=== PATIENT | female | born 1990 | race Caucasian/White ===

== ENCOUNTER 2017-07-19 14:21 | Emergency (ER) | payer SELFPAY ==
[~2017-07-19] VITALS: Ht 172.7 cm; Wt 82.1 kg
[~2017-07-19 14:21] MED LIST: OSLT75CRX PO
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
--- OUTSIDE RECORDS SUMMARY | 2017-07-19 14:26 | XMS REPORT ---
Author Author CHAD MENDOZA Organization [employer] Address Unknown Phone Unavailable Care Team Providers Care Middle School Tutor Name Role Phone CHAD MENDOZA CP Unavailable Allergies, Adverse Reactions, Alerts Substance Reaction Event Type Tramadol HCl stomach upset Drug Allergy Problems Problem Type Condition Code Onset Dates Condition Status Problem Right knee pain M25.561 Active Assessment Right knee pain M25.561 Active Problem Patsy rash of groin B37.89 Active Medications Medication Code System Code Instructions Start Date End Date Status Dosage Ketoconazole [facility] [address]-29 200 MG Orally Once a day Jul 30, 2015 Aug 02, 2015 1 tablet Ketoconazole [facility] [address]-18 2 % Externally Twice a day Jul 30, 2015 Aug 09, 2015 1 application to affected area Procedures Procedure Coding System Code Date Office Visit, Est Pt., Level 4 CPT-4 31215 Jul 31, 2015 X-RAY EXAM OF KNEE, 3 CPT-4 74295 Jul 31, 2015 Vital Signs Date/Time: Jul 31, 2015 Temperature 98.4 F Weight 160.8 lbs Height 69 in BMI 23.74 Index Blood Pressure Diastolic 78 mmHg Blood Pressure Systolic 116 mmHg Cardiac Monitoring Heart Rate 84 bpm Results No Known Results Summary Purpose [employer] Submission
--- OUTSIDE RECORDS SUMMARY | 2017-07-19 14:26 | XMS REPORT ---
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
--- OUTSIDE RECORDS SUMMARY | 2017-07-19 14:26 | XMS REPORT ---
Author Author ODETTE SINGLETON Organization [employer] Address Unknown Phone Unavailable Care Team Providers Care Eligibility Worker Name Role Phone ODETTE SINGLETON CP Unavailable Allergies, Adverse Reactions, Alerts Substance Reaction Event Type Tramadol HCl stomach upset Drug Allergy Problems Problem Type Condition Code Onset Dates Condition Status Problem Right knee pain M25.561 Active Assessment Patsy rash of groin B37.89 Active Problem Patsy rash of groin B37.89 Active Assessment Right knee pain M25.561 Active Medications Medication Code System Code Instructions Start Date End Date Status Dosage Ketoconazole [facility] [address]-07 2 % Externally Twice a day Jul 30, 2015 Aug 09, 2015 1 application to affected area Ibuprofen NDC 0 not defined Ketoconazole [facility] [address]-35 200 MG Orally Once a day Jul 30, 2015 Aug 02, 2015 1 tablet Tylenol 8 Hour [facility] [address]-40 not defined Procedures Procedure Coding System Code Date Office Visit, Est Pt., Level 3 CPT-4 38731 Jul 30, 2015 Vital Signs Date/Time: Jul 30, 2015 Temperature 98.8 F Weight 160.0 lbs Height 69 in BMI 23.63 Index Blood Pressure Diastolic 78 mmHg Blood Pressure Systolic 122 mmHg Cardiac Monitoring Heart Rate 86 bpm Results No Known Results Summary Purpose [employer] Submission
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
--- NOTE | 2017-07-19 15:40 | Diagnostic Imaging Report ---
PA and lateral views of the chest Indication: Cough Findings: The lungs are clear. The heart size is normal. There is no effusion or pneumothorax The mediastinum and jarvis appear unremarkable. Minimal right convexity curvature of the lower thoracic spine is seen. Impression: No acute process. Dictated by: Dictated on workstation # [id number]
[2017-07-19] MEDS ORDERED: RT-ALBUINH IH (16:05)
[2017-07-19 16:30] VITALS: BP 128/77
== END 2017-07-19 16:30 ==
LOC: EDUNIT# 14:21 → ER 14:24
DX: J20.9 Acute bronchitis, unspecified (principal)
CPT/HCPCS: 71020; 84703; 99282

== ENCOUNTER 2018-07-12 15:42 | Emergency (ER) | payer MEDICAID ==
[~2018-07-12] VITALS: Ht 175.3 cm; Wt 83.9 kg
[~2018-07-12 15:42] MED LIST changes: +RT-ALBUINH IH
--- OUTSIDE RECORDS SUMMARY | 2018-07-12 16:08 | XMS REPORT | Continuity of Care Document ---
Author Author [facility] Organization [facility] Address Unknown Phone Unavailable Care Team Providers Care Batch Freezer Operator Name Role Phone [facility] OF PCP Insurance Providers Payer Name Policy Number Subscriber Name Relationship [facility] [id number] Amy Martin Self / Same As Patient Advance Directives Directive Response Recorded Date/Time Advance Directives No 09/17/14 9:36pm Resuscitation Status Full Code 09/17/14 9:36pm Problems Medical Problems Problem Onset Date Status Influenza A Unknown Active Influenza A Unknown Active Medications Medication Dose Route Sig Days/Qty Instructions Order Date Discontinued Date Status Oseltamivir Phosphate (Tamiflu) 75 Mg PO TWICE A DAY 9 Qty 09/17/14 Active Social History Social History Problem Response Recorded Date/Time Alcohol Use Occasionally Uses 09/17/2014 9:36pm Recreational Drug Use No 09/17/2014 9:36pm Recent Foreign Travel No 09/17/2014 9:33pm Smoking Status Never a Smoker 09/17/2014 9:36pm Query Response Start Date Stop Date Smoking Status Never a Smoker Hospital Discharge Instructions No hospital discharge instructions. Plan of Care No plan of care. Functional Status No functional status results. Allergies, Adverse Reactions, Alerts Allergen Type Severity Reaction Status Last Updated No Known Drug Allergies Allergy Unknown Active 09/08/09 Immunizations Name Given Type Tetanus Booster (TDap) Unknown Historical Vital Signs Acute Vital Signs Vital Response Date/Time Temperature (Fahrenheit) 103.2 degrees F (97.6 - 99.5) Temperature (Calculated Celsius) 39.13714 degrees C (36.4 - 37.5) Temperature Source Temporal Pulse Rate (adult) 118 bpm (60 - 90) Respiratory Rate 18 bpm (12 - 24) O2 Sat by Pulse Oximetry 97 % (88 - 100) Blood Pressure 129/63 mm Hg Pain Pain Intensity 8 Height (Feet) 5 feet Height (Inches) 9 inches Height (Calculated Centimeters) 175.402627 cm Weight (Pounds) 127 pounds Weight (Calculated Kilograms) 57.485140 kilograms Calculated BMI 18.75 Results No known relevant diagnostic tests, laboratory data and/or discharge summary. Procedures No known history of procedures. Encounters Encounter Location Date/Time Departed Emergency Room [facility] 09/17/14 9:13pm Recent Diagnosis
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
--- OUTSIDE RECORDS SUMMARY | 2018-07-12 16:08 | XMS REPORT ---
Author Author RONALD BO Organization [facility] Address [address] [place] [address] Care Team Providers [employer] Glazer Name Role Phone RONALD BO Unavailable PROBLEMS Type Condition ICD9-CM Code CDY91-QI Code Onset Dates Condition Status SNOMED Code Problem Right knee pain M25.561 Active 58980145 Problem Patsy rash of groin B37.89 Active 56251511 ALLERGIES Substance Reaction Event Type Date Status Tramadol HCl stomach upset Drug Allergy Jun, Active ENCOUNTERS Encounter Location Date Diagnosis [facility] [address] [id number] Sep, Dental examination Z01.20 [facility] [id number] [place] [phone] Jun, Cough R05 [facility] [id number] [place] [phone] Aug, Sadia-Schlatter/osteochondroses M92.8 [facility] [id number] [place] [address] Jul, Right knee pain M25.561 [facility] [id number] [place] [phone] Jul, Patsy rash of groin B37.89 and Right knee pain M25.561 [facility] [id number] [place] [id number] Sep, [facility] [address] [phone] Sep, [facility] [id number] [place] [id number] Mar, [facility] [address], [place] [address] Mar, [facility] [address] [facility] [id number] [place] [id number] Nov, [facility] [address] [facility] [id number][place] [address] Nov, [facility] [address] [facility] [id number] [place] [id number] Aug, [facility] [address] [facility] [id number], [place] [address] Aug, [facility] [address] [facility] [id number] [place] [id number] Jun, [facility] [id number] [address] Jun, [facility] [address] [id number] [place] [phone] May, [facility] [address] [facility] [id number] [id number] 16 Apr, 2013 [facility] [address] [facility] [id number] [place] [id number] 14 Apr, 2013 [facility] [address] [address] Apr, [facility] [address] [id number] [address] 12 Apr, 2013 [facility] [address], [place] [address] 09 Apr, 2013 [facility] [address] [facility] [id number][place] [id number] Apr, [facility] [address] [facility] [id number], [place] [address] Jul, [facility] [address] [facility] [id number], [place] [address] Jul, [facility] [address] [address] Jun, [facility] [address] [facility] [id number] [place] [address] May, IMMUNIZATIONS No Known Immunizations SOCIAL HISTORY Never Assessed REASON FOR VISIT cough x 1.5 months and wont go away. Chest began to hurt, sharp pains, yesterday on Right side. States it is still hurting. PLAN OF CARE Activity Details Follow Up prn Reason: VITAL SIGNS Height 69 in 2017-07-19 Weight 181.6 lbs 2017-07-19 Temperature 98.3 degrees Fahrenheit 2017-07-19 Heart Rate 72 bpm 2017-07-19 Respiratory Rate 20 2017-07-19 BMI 26.81 kg/m2 2017-07-19 Blood pressure systolic 108 mmHg 2017-07-19 Blood pressure diastolic 58 mmHg 2017-07-19 MEDICATIONS Medication Instructions Dosage Frequency Start Date End Date Duration Status Benzonatate 200 mg Orally Three times a day 1 capsule 8h Jun, Jul, 10 days Active Ibuprofen Not-Taking Tylenol 8 Hour Not-Taking RESULTS No Results PROCEDURES No Known procedures INSTRUCTIONS MEDICATIONS ADMINISTERED No Known Medications
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
--- NOTE | 2018-07-12 16:59 | Diagnostic Imaging Report ---
INDICATION: Cough. COMPARISON: 07/19/2017. FINDINGS: Frontal and lateral views of the chest demonstrate normal heart size and pulmonary vascularity. The lungs are clear. There are no signs of infiltrate, pleural effusions or pneumothoraces. The visualized osseous structures show no acute abnormalities. IMPRESSION: 1. No acute process. No signs of infiltrates, effusions or pneumothoraces. Dictated by: Dictated on workstation # [id number]
[2018-07-12] MEDS ORDERED: AMOX-358 PO (17:12)
[2018-07-12 17:42] VITALS: BP 119/70
== END 2018-07-12 17:42 | disposition home or self-care (01) ==
LOC: EDUNIT# 15:42 → ER 15:43
DX: J06.9 Acute upper respiratory infection, unspecified (principal); K04.7 Periapical abscess without sinus; Z79.51 Long term (current) use of inhaled steroids; Z88.6 Allergy status to analgesic agent
CPT/HCPCS: 71046

== ENCOUNTER 2019-04-28 16:41 | Emergency (ER) | payer MEDICAID ==
[~2019-04-28] VITALS: Ht 175.3 cm; Wt 83.9 kg
[~2019-04-28 16:41] MED LIST changes: +AMOX-358 PO
[2019-04-28] MEDS ORDERED: AMOXICILLIN 500 MG (POLYMOX) CAP PO STA (17:29)
[2019-04-28] MEDS ORDERED: AMOX500C2 PO (17:35)
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
[2019-04-28 18:05] VITALS: BP 100/85
== END 2019-04-28 18:04 | disposition home or self-care (01) ==
LOC: EDUNIT# 16:41 → ER 16:42
DX: K02.9 Dental caries, unspecified (principal); Z88.5 Allergy status to narcotic agent
CPT/HCPCS: 99283

== ENCOUNTER 2019-06-14 16:36 | Emergency (ER) | payer MEDICAID ==
[~2019-06-14] VITALS: Ht 167 cm; Wt 84.2 kg
[~2019-06-14 16:36] MED LIST changes: +AMOX500C2 PO
--- NOTE | 2019-06-14 17:00 | NUR ---
PT DENIES CONTRACTIONS OR FEELINGS OF TIGHTNESS IN ABD.
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
[2019-06-14 17:35] LABS: BILIRUBIN,URINE NEGATIVE (NEGATIVE); CLARITY,URINE SLIGHTLY CLOUDY; COLOR,URINE YELLOW; GLUCOSE, URINE (UA) NEGATIVE (NEGATIVE); KETONES,URINE NEGATIVE (NEGATIVE); LEUKOCYTE ESTERASE ,URINE 3+ (NEGATIVE); NITRITE,URINE NEGATIVE (NEGATIVE); PH,URINE 6.5 (5-9); PROTEIN,URINE NEGATIVE (NEGATIVE)
[2019-06-14 17:43] LABS: BACTERIA,URINE TRACE /HPF; WBC,URINE >100 /HPF
[2019-06-14] MEDS ORDERED: LIDOCAINE 1% INJ 20 ML 20 ML VIAL INJ ONE (17:45)
[2019-06-14] MEDS ORDERED: cefTRIAXone 1,000 MG/2.86 ml vial (IM ONLY) IM SCH (17:45)
[2019-06-14] MEDS ORDERED: CEPH-507 PO (17:46)
[2019-06-14 18:11] VITALS: BP 106/63
== END 2019-06-14 18:10 | disposition home or self-care (01) ==
LOC: EDUNIT# 16:36 → ER 16:39
DX: S01.01XA Laceration without foreign body of scalp, initial encounter (principal); R40.2142 Coma scale, eyes open, spontaneous, at arrival to emergency department; R40.2252 Coma scale, best verbal response, oriented, at arrival to emergency department; R40.2362 Coma scale, best motor response, obeys commands, at arrival to emergency department; Z88.5 Allergy status to narcotic agent; V47.5XXA Car driver injured in collision with fixed or stationary object in traffic accident, initial encounter; Y92.413 State road as the place of occurrence of the external cause
CPT/HCPCS: 81000; 87088; 96372

== ENCOUNTER → 2019-09-21 | Outpatient (CLI) | payer MEDICAID ==
[~2019-09-21] MED LIST changes: +CEPH-507 PO
== END ==
LOC: LABNPT 09:07
PROVIDERS: ATTEND Obstetrics & Gynecology
DX: O28.8 Other abnormal findings on antenatal screening of mother (principal)
CPT/HCPCS: 82570; 84156

== ENCOUNTER → 2019-09-28 | Outpatient (CLI) | payer MEDICAID ==
[~2019-09-28] MED LIST changes: +DOCU-143 PO; +IBUP-1780 PO; +OXYC1TAB87 PO; +PNV11TAB5 PO
== END ==
LOC: LABNPT 09:01
PROVIDERS: ATTEND Obstetrics & Gynecology
DX: O14.03 Mild to moderate pre-eclampsia, third trimester (principal); Z3A.00 Weeks of gestation of pregnancy not specified
CPT/HCPCS: 82570; 84156

== ENCOUNTER → 2019-10-01 | Outpatient (CLI) | payer MEDICAID ==
[~2019-10-01] MED LIST changes: -DOCU-143 PO; -IBUP-1780 PO; -OXYC1TAB87 PO; -PNV11TAB5 PO
== END ==
LOC: LABNPT 10:05
PROVIDERS: ATTEND Obstetrics & Gynecology
DX: O14.03 Mild to moderate pre-eclampsia, third trimester (principal)
CPT/HCPCS: 82570; 84156

== ENCOUNTER → 2019-10-05 | Outpatient (CLI) | payer MEDICAID ==
[~2019-10-05] MED LIST changes: +DOCU-143 PO; +IBUP-1780 PO; +OXYC1TAB87 PO; +PNV11TAB5 PO
== END ==
LOC: LABNPT 08:47
PROVIDERS: ATTEND Obstetrics & Gynecology
DX: Z01.89 Encounter for other specified special examinations (principal)
CPT/HCPCS: 82570; 84156

== ENCOUNTER 2019-10-06 10:39 | Inpatient (IN) | payer MEDICAID ==
[~2019-10-06] VITALS: Ht 175.3 cm; Wt 87.6 kg
[2019-10-06] VITALS (32 sets, daily range): BP systolic 91–142; BP diastolic 51–71
[~2019-10-06 10:39] MED LIST changes: -DOCU-143 PO; -IBUP-1780 PO; -OXYC1TAB87 PO; -PNV11TAB5 PO
--- NOTE | 2019-10-06 10:46 | NUR ---
ORION URIBE presented to unit from ED, accompanied by Signficant Other, with c/o LABOR. ORION URIBE weighed, gowned, voided, and to bed. EFHM and TOCO applied, VS taken. ORION URIBE oriented to bed controls, call light, TV, heat, and A/C controls.
[2019-10-06 11:18] LABS: BILIRUBIN,URINE NEGATIVE (NEGATIVE); CLARITY,URINE CLEAR; COLOR,URINE YELLOW; GLUCOSE, URINE (UA) NEGATIVE (NEGATIVE); KETONES,URINE NEGATIVE (NEGATIVE); LEUKOCYTE ESTERASE ,URINE 1+ (NEGATIVE); NITRITE,URINE NEGATIVE (NEGATIVE); PROTEIN,URINE NEGATIVE (NEGATIVE)
[2019-10-06 11:38] LABS: BACTERIA,URINE NEGATIVE /HPF; WBC,URINE RARE /HPF
[2019-10-06 11:39] LABS: TRICHOMONAS,URINE FEW /HPF
[2019-10-06] MEDS ORDERED: D5 LR IV SOLUTION 1,000 ML IV ONE ×2 (12:13→12:15)
[2019-10-06] MEDS ORDERED: metroNIDAZOLE 500 MG (FLAGYL) TAB PO NR (12:15)
[2019-10-06] MEDS: D5 LR IV SOLUTION 1,000 ML IV SCH ×2 (14:30→23:26)
[2019-10-06] MEDS ORDERED: WATER (STERILE) FOR INJECTION 20 ML ONE (15:07)
[2019-10-06] MEDS ORDERED: AMPICILLIN FOR IV USE 2,000 MG VIAL ONE (15:08)
[2019-10-06] MEDS ORDERED: OXYTOCIN PRE-MIX DRIP 500 ML IV SCH (15:11)
--- NOTE | 2019-10-06 15:11 | History & Physical ---
History and Physical Date Seen by Provider: Oct 06, 2019 Time Seen by Provider: 15:07 This patient is a 29-year-old white female with an EDC of 37 2039 for now 37 weeks gestation she was admitted complaining of contractions pain and pressure and discharge. She was found be cristin with some regularity. Her cervix is dilated 2 cm. Nitrazine was negative. The patient was found to have trichomoniasis. Her is complicated by oligohydramnios. Her last GABRIELLA was yesterday was 58. Her GBS culture done on September 21, 2019 was positive. Patient is admitted now for labor management. She'll be treated for her trichomoniasis and well. She will receive ampicillin for GBS prophylaxis. Allergies are to tramadol Medications are vitamins Social and surgical histories are per the antepartum record HEENT exam is normal Neck is supple no lymphadenopathy no thyromegaly Abdomen is gravid soft nontender nondistended Extremities show no clubbing cyanosis. There is no Homans sign. Pelvic exam shows cervix that is dilated TO 2.5 CM 50 percent effaced -1 to -2 station -soft. With a vertex presentation and intact membranes. Amniotomy is performed releasing slightly port wine fluid monitor shows contractions about every 4-6 minutes. heart rate pattern is normal. Laboratory Tests Test 10/06/19 10:55 Range/Units Urine Color YELLOW Urine Clarity CLEAR Urine pH 8.0 5-9 Urine Specific [place] 1.015 L 1.016-1.022 Urine Protein NEGATIVE NEGATIVE Urine Glucose (UA) NEGATIVE NEGATIVE Urine Ketones NEGATIVE NEGATIVE Urine Nitrite NEGATIVE NEGATIVE Urine Bilirubin NEGATIVE NEGATIVE Urine Urobilinogen 0.2 < = 1.0 MG/DL Urine Leukocyte Esterase 1+ H NEGATIVE Urine RBC (Auto) NEGATIVE NEGATIVE Urine RBC NONE /HPF Urine WBC RARE /HPF Urine Squamous Epithelial Cells 2-5 /HPF Urine Crystals NONE /LPF Urine Bacteria NEGATIVE /HPF Urine Casts NONE /LPF Urine Mucus NEGATIVE /LPF Urine Trichomonas FEW H /HPF Urine Culture Indicated NO Assessment and plan term at 37 weeks' gestation, dated by oligohydramnios with a GBS positive culture and likely in early labor. Patient is admitted now be given ampicillin for GBS prophylaxis. She'll be given 2 g dose of metronidazole to cover for her trichomoniasis. We anticipate a vaginal delivery. 37 weeks and early labor with oligohydramnios Allergies and Home Medications Allergies Coded Allergies: tramadol (Verified Adverse Reaction, Mild, NAUSEA, 07/21/17) Home Medications Albuterol Sulfate 1 Puff Puff, 1-4 PUFF IH Q4H PRN for SHORTNESS OF BREATH 1 PUFF = 90 MCG Prescribed by: BUDDY LÓPEZ on 07/19/17 1605 Amoxicillin 500 Mg Capsule, 500 MG PO TID Prescribed by: SANTOS BUSTOS on 04/28/19 1735 Amoxicillin/Potassium Clav 1 Each Tablet, 1 EACH PO BID Prescribed by: JAIDEN STACK on 07/12/18 1712 Cephalexin 500 Mg Capsule, 500 MG PO TID Prescribed by: SANTOS BUSTOS on 06/14/19 1746 Oseltamivir Phosphate 75 Mg Cap, 75 MG PO BID Prescribed by: SANTOS BUSTOS on 09/17/14 2211 Patient Home Medication List Home Medication List Reviewed: Yes TRAY CALIXTO MD Oct 06, 2019 15:11
[2019-10-06] MEDS ORDERED: DOCU-143 PO ×2 (15:17)
[2019-10-06] MEDS ORDERED: OXYC1TAB87 PO ×2 (15:17)
[2019-10-06] MEDS ORDERED: IBUP-1780 PO ×2 (15:17)
--- NOTE | 2019-10-06 15:18 | Discharge Inst-Surgical ---
Discharge Inst-Surgical Depart Medication/Instructions New, Converted or Re-Newed RX: RX on Chart Consults/Follow Up Patient Instructions: as directed Orders & Referrals Follow Up Appt: Call to make follow up appt. for patient in 4 weeks. Activity Per routine post vaginal delivery instructions. Please call in RX to patient pharmacy. Diet as tolerated Patient may shower or tub bathe as desired. Activity Activity as Tolerated: No Diet Discharge Diet: No Restrictions TRAY CALIXTO MD Oct 06, 2019 15:17
[2019-10-06 16:05] LABS: BASOPHILS % (AUTO) 0 % (0-10); EOSINOPHILS # (AUTO) 0.2 10^3/uL (0.0-0.3); EOSINOPHILS % (AUTO) 2 % (0-10); HEMATOCRIT 29 % (35-52); HEMOGLOBIN 9.4 G/DL (11.5-16.0); LYMPHOCYTES # (AUTO) 2.1 X 10^3 (1.0-4.0); LYMPHOCYTES % (AUTO) 17 % (12-44); MEAN CORPUSCULAR HEMOGLOBIN 29 PG (25-34); MEAN CORPUSCULAR HGB CONC 32 G/DL (32-36); MEAN CORPUSCULAR VOLUME 90 FL (80-99); MONOCYTES % (AUTO) 8 % (0-12); NEUTROPHILS # (AUTO) 9.1 X 10^3 (1.8-7.8); NEUTROPHILS % (AUTO) 73 % (42-75); PLATELET COUNT 152 10^3/uL (130-400); RED CELL DISTRIBUTION WIDTH 14.6 % (10.0-14.5); WHITE BLOOD COUNT 12.4 10^3/uL (4.3-11.0)
[2019-10-06] MEDS ORDERED: LACTATED RINGERS 1,000 ML IV ONE (16:38)
[2019-10-06] MEDS ORDERED: SUFENTA 0.6MCG/ML BUPIVA 0.125 100 ML ONE (16:49)
[2019-10-06] MEDS ORDERED: fentaNYL INJECTION 100 MCG/2 ML AMP ONE (17:26)
[2019-10-06] MEDS ORDERED: BUPIVACAINE 0.25% 30 ML (SENSORCAINE) VIAL ONE ×2 (17:26→18:34)
--- NOTE | 2019-10-06 17:30 | NUR ---
Rafa Heller BRICK SIDING APPLICATOR here for epidural placement. Procedure explained, consent reviewed and signed by anesthesia. Questions answered to patient's satisfaction. Time out taken to verify correct patient/procedure. Patient up to side of bed, assisted into sitting position. Betadine prep done x3 and sterile drape applied. Local done, see anesthesia record. Test dose given, see anesthesia record for drug and dosage. Epidural catheter secured in place. Epidural placement complete. Assisted back into bed, monitors adjusted. Epidural dosed, see anesthesia record. Epidural of Sufenta/Bupivicaine @ 12 cc/hr stated per pump. Patient tolerated procedure well.
--- NOTE | 2019-10-06 18:20 | NUR ---
Rafa Heller HOD CARRIER back to room to replace epidural. Time out taken to verify correct patient/procedure. Patient up to side of bed, assisted into sitting position. Betadine prep done x3 and sterile drape applied. Local done, see anesthesia record. Test dose given, see anesthesia record for drug and dosage. Epidural catheter secured in place. Epidural placement complete. Assisted back into bed, monitors adjusted. Epidural dosed, see anesthesia record. Epidural of Sufenta/Bupivicaine @ 12 cc/hr stated per pump. Bolus of Lidocaine and Marcaine per anesthesia.
[2019-10-06] MEDS ORDERED: LIDOCAINE PF 2% 5 ML (XYLOCAINE) VIAL ONE (18:34)
[2019-10-06] MEDS ORDERED: LACTATED RINGERS 1,000 ML IV SCH (18:46)
[2019-10-06] MEDS ORDERED: NALOXONE 0.4 MG/ML 1 ML (NARCAN) VIAL IV PRN ×2 (19:00)
[2019-10-06] MEDS ORDERED: diphenhydrAMINE 50 MG/ML INJ (BENADRYL) IV PRN (19:00)
[2019-10-06] MEDS ORDERED: EPIDURAL (SUFENTA 0.6MCG/ML BUPIVA 0.125%) 100 ML BAG EPI PRN (19:00)
[2019-10-06] MEDS ORDERED: METOCLOPRAMIDE INJ 10 MG/2 ML (REGLAN) IV PRN (19:00)
[2019-10-06] MEDS ORDERED: ONDANSETRON 4 MG/2 ML (SDV) Z0FRAN IV PRN (19:00)
[2019-10-06] MEDS ORDERED: AMPICILLIN FOR IV USE 1,000 MG/VIAL ONE (19:20)
[2019-10-06] MEDS ORDERED: WATER (STERILE) FOR INJECTION 10 ML ONE (19:21)
[2019-10-06] MEDS: AMPICILLIN FOR IV USE 1,000 MG in WATER (STERILE) FOR INJECTION 7.4 ML IV SCH ×2 (19:32→22:56)
[2019-10-06] MEDS ORDERED: PNV11TAB5 PO ×2 (19:36)
[2019-10-06] MEDS ORDERED: CATHETER FLUSH 10 ML SYR IV SCH (22:00)
[2019-10-07] VITALS (17 sets, daily range): BP systolic 100–152; BP diastolic 53–75
[2019-10-07] MEDS ORDERED: LIDOCAINE/EPI 2% 1:200,00 (XYLOCAINE) 10 ML VIAL ONE (00:11)
[2019-10-07] MEDS ORDERED: OXYTOCIN PRE-MIX DRIP 500 ML IV SCH (01:57)
[2019-10-07] MEDS ORDERED: BENZOCAINE/MENTHOL (DERMOPLAST) 60 ML CAN TP PRN (02:00)
[2019-10-07] MEDS ORDERED: KETOROLAC 30 MG/ML VIAL IVP SCH (02:00)
[2019-10-07] MEDS ORDERED: MEASLES,MUMPS,RUBELLA 1 EA INJ SC ONE (02:00)
[2019-10-07] MEDS ORDERED: TETANUS,DIPTH,PERTUSS P/F (BOOSTRIX) 0.5 ML VIAL IM ONE (02:00)
[2019-10-07] MEDS ORDERED: ONDANSETRON 4 MG/2 ML (SDV) Z0FRAN IVP PRN (02:00)
[2019-10-07] MEDS ORDERED: oxyCODONE/APAP 5/325MG (PERCOCET 5) TABLET PO PRN (02:00)
--- NOTE | 2019-10-07 03:30 | NUR ---
epidural cath removed. pericare completed. ff 1 below umbilicus. pad and panties applied. pt assisted to w'c and taken down to 310. pt orientated to room. info papers discussed. pt denies any needs at this time. will continue to monitor.
--- NOTE | 2019-10-07 03:45 | NUR ---
Ice pack applied to perineum
--- NOTE | 2019-10-07 06:42 | Anesthesia-Regional Post-Op ---
Regional Patient Condition Mental Status: Alert, Oriented x3 Circulation: Same as Pre-Op Headache: Absent Sensation: Full Recovery Motor Block: Absent Post Op Complications Complications None Follow Up Care/Instructions Patient Instructions None needed. Anesthesia/Patient Condition Patient is doing well, no complaints, stable vital signs, no apparent adverse anesthesia problems. No complications reported per nursing. AARTI BECKFORD CRNA Oct 07, 2019 06:42
--- NOTE | 2019-10-07 07:21 | NUR ---
IV saline locked.
--- NOTE | 2019-10-07 08:55 | NUR ---
AM shift assessment completed and vital signs obtained, see interventions. Plan of care reviewed with patient. Patient verbalizes understanding and questions answered. Fresh water provided.
[2019-10-07] MEDS: DOCUSATE SODIUM 100 MG (COLACE) CAP PO SCH ×2 (08:57→20:32)
[2019-10-07] MEDS: IBUPROFEN 800 MG (MOTRIN) TAB PO SCH ×3 (08:58→20:32)
--- NOTE | 2019-10-07 10:15 | OPERATIVE REPORT ---
DATE OF SERVICE: 10/07/2019 DELIVERY NOTE The patient delivered by term spontaneous vaginal delivery at 37 and 1/7 weeks' gestation a viable male with Apgars of 8 and 9 at 1 and 5 minutes respectively, weight of 6 pounds and 9 ounces. time of 1:15 and a cord blood pH of 7.32. The delivery was accomplished over an intact perineum under epidural analgesia, augmented with local in the perineum. The infant was bulb suctioned on delivery of the head and again on completion of delivery. When the umbilical cord was pulseless, the father cut the cord and the baby was passed to mom's abdomen. The placenta delivered fairly promptly, spontaneously [place]. It was normal with a 3-vessel cord. The cervix, vagina, rectum and perineum were examined and found intact, except for bilateral first-degree vaginal side wall/hymenal ring lacerations that were each repaired with a suture of 3-0 Vicryl Rapide in a running locking fashion. Good hemostasis and good reapproximation was achieved. The patient tolerated the delivery and the repair well. Estimated blood loss was 200 mL. Sponge and needle counts were correct. The patient recovered in the LDR. The baby remained with the mom. Job ID: [id number] DocumentID: [id number] Dictated Date: 10/07/2019 01:36:11 Supervisor Doping Date: 10/07/2019 10:14:45 Dictated By: TRAY CALIXTO MD
--- NOTE | 2019-10-07 13:42 | NUR ---
saline lock removed. pt reports pain level at 3 and does not require pain medication. linens to room for shower. family at bedside
--- NOTE | 2019-10-07 14:30 | NUR ---
pt to shower. no changes in status. ambulating without issues
[2019-10-07] MEDS ORDERED: AMPICILLIN FOR IV USE 2,000 MG in WATER (STERILE) FOR INJECTION 14.8 ML IV SCH (15:15)
--- NOTE | 2019-10-07 16:00 | NUR ---
pt up in hallway. denies need for pain medication. no changes in status
--- NOTE | 2019-10-07 20:36 | Progress Note ---
Standard Progress Note Progress Notes/Assess & Plan Date Seen by a Provider: Oct 07, 2019 Time Seen by a Provider: 20:36 Progress/Assessment & Plan This patient is without complaint. She is ambulating, voiding, tolerating all intake well has good pain control. Vital Signs 10/07/19 20:00 Temp 36.8 Pulse 78 Resp 18 B/P (MAP) 116/70 (85) Pulse Ox 97 O2 Delivery Room Air Vital signs are stable. Patient is afebrile. Fundus is firm below the umbilicus and nontender. Extremities show no clubbing or cyanosis. There is no Homans sign. Assessment and plan day 1 doing well. Plan is for routine convalescence care. Final Diagnosis 37 week spontaneous vaginal delivery TRAY CALIXTO MD Oct 07, 2019 20:36
[2019-10-08] VITALS: BP 125/69
[2019-10-08] MEDS: IBUPROFEN 800 MG (MOTRIN) TAB PO SCH (03:22)
[2019-10-08 04:00] VITALS: BP 107/62
--- NOTE | 2019-10-08 07:47 | Progress Note ---
Standard Progress Note Progress Notes/Assess & Plan Date Seen by a Provider: Oct 08, 2019 Time Seen by a Provider: 07:46 Progress/Assessment & Plan This patient is without complaint. She is ambulating, voiding, tolerating all intake well has good pain control. Vital Signs 10/07/19 20:00 Temp 36.8 Pulse 78 Resp 18 B/P (MAP) 116/70 (85) Pulse Ox 97 O2 Delivery Room Air Vital signs are stable. Patient is afebrile. Fundus is firm below the umbilicus and nontender. Extremities show no clubbing or cyanosis. There is no Homans sign. Assessment and plan day 1 doing well. Plan is for routine convalescence care. October 08, 2019 Patient is without complaint. She is ambulating, voiding, tolerating oral intake well has good pain control. Vital Signs Date Time Temp Pulse Resp B/P (MAP) Pulse Ox O2 Delivery O2 Flow Rate FiO2 10/08/19 04:00 36.7 78 18 107/62 (77) 97 Room Air 10/08/19 00:00 36.9 79 16 125/69 (87) 98 Room Air 10/07/19 21:00 97 Room Air 10/07/19 20:00 36.8 78 18 116/70 (85) 97 Room Air 10/07/19 14:30 37.1 78 20 109/53 (71) 10/07/19 08:55 36.9 76 18 127/65 (85) 97 Room Air I & O 10/08/19 07:00 Intake Total 500 ml Balance 500 ml Vital signs are stable. Patient is afebrile. Fundus is firm below the umbilicus and nontender. Extremities show no clubbing or cyanosis. There is no Homans sign. Assessment and plan day 1+ doing well. Plan is for routine convalescence care today and likely discharge home tomorrow Final Diagnosis 37 week spontaneous vaginal delivery TRAY CALIXTO MD Oct 08, 2019 07:47
[2019-10-08] MEDS: DOCUSATE SODIUM 100 MG (COLACE) CAP PO SCH ×2 (08:43→09:20)
[2019-10-08 08:44] VITALS: BP 112/61
--- NOTE | 2019-10-08 14:10 | NUR ---
Discharge instructions explained to pt with copy provided to pt along with percocet script. Other prescriptions called to [facility]. Pt notified of follow up appointment. Pt verbalizes understanding of instruction and signs to verify. Denies needs or concerns at this time.
--- NOTE | 2019-10-08 14:50 | NUR ---
Pt ambulates off unit to private vehicle accompanied by S.O., , son, and RN. All personal belongings with pt. No s/s of distress noted.
== END 2019-10-08 14:50 | disposition home or self-care (01) | DRG 806 ==
LOC: WSo 10:39 → LDRP 10:39 → WSo 14:59 → LDRP 15:00
PROVIDERS: ADMIT Obstetrics & Gynecology; ATTEND Obstetrics & Gynecology
PROC: 10E0XZZ Delivery of Products of Conception, External Approach (ICD-10-PCS; principal; 2019-10-07)
PROC: 0UQGXZZ Repair Vagina, External Approach (ICD-10-PCS; 2019-10-07)
DX: O99.824 Streptococcus B carrier state complicating childbirth (principal); O98.32 Other infections with a predominantly sexual mode of transmission complicating childbirth; A59.9 Trichomoniasis, unspecified; O41.03X0 Oligohydramnios, third trimester, not applicable or unspecified; O71.4 Obstetric high vaginal laceration alone; Z3A.37 37 weeks gestation of pregnancy; Z37.0 Single live birth
CPT/HCPCS: 36415; 81000; 85025; 86850; 86900; 86901

== ENCOUNTER 2020-05-13 00:53 | Emergency (ER) | payer MEDICAID ==
[~2020-05-13] VITALS: Ht 175 cm; Wt 81.6 kg
[~2020-05-13 00:53] MED LIST changes: +DOCU-143 PO; +IBUP-1780 PO; +OXYC1TAB87 PO; +PNV11TAB5 PO
[2020-05-13 02:03] LABS: BASOPHILS % (AUTO) 0 % (0-10); EOSINOPHILS # (AUTO) 0.5 10^3/uL (0.0-0.3); EOSINOPHILS % (AUTO) 6 % (0-10); HEMATOCRIT 37 % (35-52); HEMOGLOBIN 11.9 G/DL (11.5-16.0); LYMPHOCYTES # (AUTO) 2.1 X 10^3 (1.0-4.0); LYMPHOCYTES % (AUTO) 25 % (12-44); MEAN CORPUSCULAR HEMOGLOBIN 28 PG (25-34); MEAN CORPUSCULAR HGB CONC 32 G/DL (32-36); MEAN CORPUSCULAR VOLUME 86 FL (80-99); MEAN PLATELET VOLUME 10.6 FL (7.4-10.4); MONOCYTES # (AUTO) 0.8 X 10^3 (0.0-1.0); MONOCYTES % (AUTO) 9 % (0-12); NEUTROPHILS # (AUTO) 5.1 X 10^3 (1.8-7.8); NEUTROPHILS % (AUTO) 60 % (42-75); PLATELET COUNT 203 10^3/uL (130-400); WHITE BLOOD COUNT 8.6 10^3/uL (4.3-11.0)
[2020-05-13 02:11] LABS: BILIRUBIN,URINE NEGATIVE (NEGATIVE); CLARITY,URINE CLEAR; COLOR,URINE YELLOW; GLUCOSE, URINE (UA) NEGATIVE (NEGATIVE); KETONES,URINE NEGATIVE (NEGATIVE); LEUKOCYTE ESTERASE ,URINE NEGATIVE (NEGATIVE); NITRITE,URINE NEGATIVE (NEGATIVE); PROTEIN,URINE NEGATIVE (NEGATIVE)
[2020-05-13 02:15] LABS: ALBUMIN 4.1 GM/DL (3.2-4.5); CHLORIDE 107 MMOL/L (98-107); POTASSIUM 3.7 MMOL/L (3.6-5.0); SODIUM 139 MMOL/L (135-145)
[2020-05-13 02:16] LABS: CALCIUM 9.3 MG/DL (8.5-10.1)
[2020-05-13 02:17] LABS: BACTERIA,URINE TRACE /HPF
[2020-05-13 02:17] LABS: GLUCOSE 103 MG/DL (70-105); TOTAL PROTEIN 7.3 GM/DL (6.4-8.2)
[2020-05-13 02:18] LABS: CARBON DIOXIDE 23 MMOL/L (21-32)
[2020-05-13 02:19] LABS: BILIRUBIN,TOTAL 0.2 MG/DL (0.1-1.0); INR 0.9 (0.8-1.4); PROTHROMBIN TIME PATIENT 12.8 SEC (12.2-14.7)
--- NOTE | 2020-05-13 02:20 | ED Cardiac General ---
History of Present Illness General Stated Complaint: CP,PLEURISY Source: patient, EMS History of Present Illness Date Seen by Provider: May 13, 2020 Time Seen by Provider: 00:58 Initial Comments PT ARRIVES VIA EMS FROM WORK AT [employer] ( WORKS IN [employer] THERE) C/O CHEST PAIN SINCE 2329 TONIGHT STATES PAIN IS IN MID CHEST AND INCREASED WITH INSPIRATION AND IS SHARP AND STABBING STATES HER LEFT ARM WENT NUMB STATES SHE "WAS GETTING ALL WORKED UP" WHILE AT WORK, ONGOING PROBLEMS WITH HER BOSS, CAUSING MUCH ANXIETY THIS HAS BEEN ONGOING PROBLEM AND OCCURRING MUCH MORE FREQUENTLY THE LAST FEW WEEKS HAS NOT TAKEN ANYTHING FOR PAIN HAS NOT SOUGHT CARE UNTIL TONIGHT NO SHORTNESS OF BREATH NO FEVER OR RECENT ILLNESS NO URI SYMPTOMS OR SORE THROAT NO GI SYMPTOMS NO HEADACHE OR BODY ACHES VITALS FOR EMS: BP 126/77, HR IN 80'S, O2 SATS UPPER 90'S. ACCUCHECK 108 NO ASPIRIN OR NTG BY EMS. DELIVERED 10/06/19. NOT , IS ON DEPO-PROVERA SHOTS, WITH NEXT SHOT BEING DUE IN MID MAY LMP 1 WEEK AGO. NORMAL. PCP: EDMUNDO Allergies and Home Medications Allergies Coded Allergies: tramadol (Verified Adverse Reaction, Mild, NAUSEA, 07/21/17) Home Medications Docusate Sodium 100 Mg Capsule, 100 MG PO BID Prescribed by: TRAY BELTRÁN on 10/06/191516 Ibuprofen 800 Mg Tablet, 800 MG PO Q6H PRN for PAIN Prescribed by: TRAY BELTRÁN on 10/06/191516 Oxycodone HCl/Acetaminophen 1 Each Tablet, 1 TAB PO Q4H Prescribed by: TRAY BELTRÁN on 10/06/191516 Pgq250/FA/Omega3/Dha/Fish Oil 1 Each Tab.chew, 2 EACH PO DAILY, (Reported) Patient Home Medication List Home Medication List Reviewed: Yes Review of Systems Review of Systems Constitutional: no symptoms reported; No chills, No diaphoresis, No dizziness, No fever Respiratory: No Symptoms Reported Cardiovascular: See HPI, Chest Pain; Denies Edema, Denies Irregular Heart Rate, Denies Lightheadedness, Denies Palpitations, Denies Syncope Gastrointestinal: No Symptoms Reported; Denies Abdominal Pain, Denies Diarrhea, Denies Nausea, Denies Vomiting Genitourinary: No Symptoms Reported Musculoskeletal: no symptoms reported; No back pain Skin: no symptoms reported; No rash Psychiatric/Neurological: See HPI, Anxiety; Denies Headache; Numbness, Paresthesia; Denies Weakness Endocrine: No Symptoms Reported Hematologic/Lymphatic: No Symptoms Reported Past Agleblc-Zxcdbo-Vgsnwi Hx Past Med/Social Hx: Reviewed and Corrections made Patient Social History Alcohol Use: Occasionally Uses Alcohol Beverage of Choice: Beer Recreational Drug Use: No Smoking Status: Former Smoker Type Used: Cigars 2nd Hand Smoke Exposure: No Recent Hopitalizations: No Immunizations Up To Date PED Vaccines UTD: Yes Seasonal Allergies Seasonal Allergies: No Past Medical History Surgeries: No Respiratory: No Currently Using CPAP: No Currently Using BIPAP: No Cardiac: No Neurological: No Reproductive Disorders: No Sexually Transmitted Disease: Yes (Trichomoniasis ) Genitourinary: No Gastrointestinal: No Musculoskeletal: No Endocrine: No HEENT: No Cancer: No Psychosocial: Yes Anxiety Integumentary: No Blood Disorders: No Adverse Reaction/Blood Tranf: No Family Medical History Asthma 19 MOTHER Diabetes mellitus 19 MOTHER Hypertension 19 MOTHER Physical Exam Vital Signs Vital Signs - First Documented 05/13/20 01:00 Temp 36.7 Pulse 75 Resp 20 B/P (MAP) 115/59 (77) Pulse Ox 98 Capillary Refill : Height, Weight, BMI Height: 5'9.00" Weight: 185lbs. 0oz. 83.327602qy; 28.50 BMI Method:Stated General Appearance: No Apparent Distress, WD/WN, Other (DOES NOT APPEAR TO BE IN ANY DISCOMFORT OR DISTRESS. TEXTING/PLAYING ON PHONE) Neck: Full Range of Motion, Normal Inspection, Non Tender, Supple Respiratory: Normal Breath Sounds, No Accessory Muscle Use, No Respiratory Distress, Other (MILD MID STERNAL TENDERNESS--PALPATION REPRODUCES PAIN ) Cardiovascular: Regular Rate, Rhythm, No Edema, No JVD, No Murmur, Normal Peripheral Pulses Gastrointestinal: Normal Bowel Sounds, No Organomegaly, No Pulsatile Mass, Non Tender, Soft Extremity: Normal Capillary Refill, Normal Inspection, Normal Range of Motion, Non Tender, No Calf Tenderness, No Pedal Edema Neurologic/Psychiatric: Alert, Oriented x3, No Motor/Sensory Deficits, Normal Mood/Affect, piper helper II-XII Norm as Tested Skin: Normal Color, Warm/Dry; No Rash Progress/Results/Core Measures Results/Orders Lab Results Laboratory Tests Test 05/13/20 01:55 05/13/20 02:03 Range/Units White Blood Count 8.6 4.3-11.0 10^3/uL Red Blood Count 4.25 L 4.35-5.85 10^6/uL Hemoglobin 11.9 11.5-16.0 G/DL Hematocrit 37 35-52 % Mean Corpuscular Volume 86 80-99 FL Mean Corpuscular Hemoglobin 28 25-34 PG Mean Corpuscular Hemoglobin Concent 32 32-36 G/DL Red Cell Distribution Width 13.8 10.0-14.5 % Platelet Count 203 130-400 10^3/uL Mean Platelet Volume 10.6 H 7.4-10.4 FL Neutrophils (%) (Auto) 60 42-75 % Lymphocytes (%) (Auto) 25 12-44 % Monocytes (%) (Auto) 9 0-12 % Eosinophils (%) (Auto) 6 0-10 % Basophils (%) (Auto) 0 0-10 % Neutrophils # (Auto) 5.1 1.8-7.8 X 10^3 Lymphocytes # (Auto) 2.1 1.0-4.0 X 10^3 Monocytes # (Auto) 0.8 0.0-1.0 X 10^3 Eosinophils # (Auto) 0.5 H 0.0-0.3 10^3/uL Basophils # (Auto) 0.0 0.0-0.1 10^3/uL Prothrombin Time 12.8 12.2-14.7 SEC INR Comment 0.9 0.8-1.4 Activated Partial Thromboplast Time 30 24-35 SEC Sodium Level 139 135-145 MMOL/L Potassium Level 3.7 3.6-5.0 MMOL/L Chloride Level 107 98-107 MMOL/L Carbon Dioxide Level 23 21-32 MMOL/L Anion Gap 9 5-14 MMOL/L Blood Urea Nitrogen 16 7-18 MG/DL Creatinine 0.93 0.60-1.30 MG/DL Estimat Glomerular Filtration Rate > 60 BUN/Creatinine Ratio 17 Glucose Level 103 70-105 MG/DL Calcium Level 9.3 8.5-10.1 MG/DL Corrected Calcium 9.2 8.5-10.1 MG/DL Magnesium Level 2.0 1.6-2.4 MG/DL Total Bilirubin 0.2 0.1-1.0 MG/DL Aspartate Amino Transf (AST/SGOT) 16 5-34 U/L Alanine Aminotransferase (ALT/SGPT) 17 0-55 U/L Alkaline Phosphatase 71 40-136 U/L Troponin I < 0.028 <0.028 NG/ML B-Type Natriuretic Peptide < 10.0 <100.0 PG/ML Total Protein 7.3 6.4-8.2 GM/DL Albumin 4.1 3.2-4.5 GM/DL Lipase 26 8-78 U/L Serum Test, Qualitative NEGATIVE NEGATIVE Urine Color YELLOW Urine Clarity CLEAR Urine pH 6.0 5-9 Urine Specific [place] 1.020 1.016-1.022 Urine Protein NEGATIVE NEGATIVE Urine Glucose (UA) NEGATIVE NEGATIVE Urine Ketones NEGATIVE NEGATIVE Urine Nitrite NEGATIVE NEGATIVE Urine Bilirubin NEGATIVE NEGATIVE Urine Urobilinogen 0.2 < = 1.0 MG/DL Urine Leukocyte Esterase NEGATIVE NEGATIVE Urine RBC (Auto) NEGATIVE NEGATIVE Urine RBC NONE /HPF Urine WBC NONE /HPF Urine Squamous Epithelial Cells 5-10 /HPF Urine Crystals NONE /LPF Urine Bacteria TRACE /HPF Urine Casts NONE /LPF Urine Mucus SMALL H /LPF Urine Culture Indicated NO Urine Opiates Screen NEGATIVE NEGATIVE Urine Oxycodone Screen NEGATIVE NEGATIVE Urine Methadone Screen NEGATIVE NEGATIVE Urine Propoxyphene Screen NEGATIVE NEGATIVE Urine Barbiturates Screen NEGATIVE NEGATIVE Ur Tricyclic Antidepressants Screen NEGATIVE NEGATIVE Urine Phencyclidine Screen NEGATIVE NEGATIVE Urine Amphetamines Screen NEGATIVE NEGATIVE Urine Methamphetamines Screen NEGATIVE NEGATIVE Urine Benzodiazepines Screen NEGATIVE NEGATIVE Urine Cocaine Screen NEGATIVE NEGATIVE Urine Cannabinoids Screen NEGATIVE NEGATIVE My Orders Orders - MAYE NARAYANAN DO Ed Iv/Invasive Line Start (05/13/20 01:06) Urine Bedside (05/13/20 01:06) Ekg Tracing (05/13/20 01:06) Monitor-Rhythm Ecg Trace Only (05/13/20 01:06) BNP (05/13/20 01:06) Cbc With Automated Diff (05/13/20 01:06) Comprehensive Metabolic Panel (05/13/20 01:06) Drug Screen Stat (Urine) (05/13/20 01:06) Lipase (05/13/20 01:06) Magnesium (05/13/20 01:06) Protime With Inr (05/13/20 01:06) Partial Thromboplastin Time (05/13/20 01:06) Ua Culture If Indicated (05/13/20 01:06) Troponin I (05/13/20 01:06) Chest Pa/Lat (2 View) (05/13/20 01:06) Hcg,Qualitative Serum (05/13/20 01:57) Ketorolac Injection (Toradol Injection) (05/13/20 02:30) Vital Signs/I&O 05/13/20 01:00 Temp 36.7 Pulse 75 Resp 20 B/P (MAP) 115/59 (77) Pulse Ox 98 Progress Progress Note : Progress Note PAIN BEGINNING TO EASE ON IT'S OWN, BUT IS NOT GONE. GIVEN TORADOL WITH FURTHER IMPROVEMENT IN PAIN . Initial ECG Impression Date: May 13, 2020 Initial ECG Impression Time: 01:24 Initial ECG Rate: 63 Initial ECG Rhythm: Normal Sinus Initial ECG Impression: Normal Diagnostic Imaging Comments CXR--NO ACUTE PROCESS, PENDING RADIOLOGIST REVIEW Departure Impression Primary Impression: Anterior chest wall pain Additional Impression: Anxiety Disposition: 01 HOME, SELF-CARE Condition: Improved Departure-Patient Inst. Referrals: [facility] (PCP/Family) Primary Care Physician Patient Instructions: Chest Pain (DC), Costochondritis (DC), Chest Pain That Is Not Caused by the Heart (DC), Anxiety, Adult (DC) Add. Discharge Instructions: HOME, REST TYLENOL AND MOTRIN NEEDED FOR PAIN FOLLOW UP WITH [facility] THIS WEEK FOR FURTHER CARE MAYE NARAYANAN DO May 13, 2020 02:20
[2020-05-13 02:21] LABS: ALKALINE PHOSPHATASE 71 U/L (40-136); CREATININE SERUM 0.93 MG/DL (0.60-1.30); GFR ESTIMATED > 60
[2020-05-13 02:22] LABS: BUN/CREATININE RATIO 17
[2020-05-13 02:24] LABS: ALANINE AMINOTRANSFERASE 17 U/L (0-55)
[2020-05-13 02:25] LABS: LIPASE 26 U/L (8-78)
[2020-05-13 02:28] LABS: AMPHETAMINE SCREEN, URINE NEGATIVE (NEGATIVE); BARBITURATE SCREEN URINE NEGATIVE (NEGATIVE); BENZODIAZEPINES SCREEN URINE NEGATIVE (NEGATIVE); CANNABINOID SCREEN, URINE NEGATIVE (NEGATIVE); COCAINE SCREEN URINE NEGATIVE (NEGATIVE); METHADONE STAT NEGATIVE (NEGATIVE); METHAMPHETAMINE SCREEN URINE S NEGATIVE (NEGATIVE); OPIATE SCREEN URINE NEGATIVE (NEGATIVE); OXYCODONE STAT NEGATIVE (NEGATIVE); PROPOXYPHENE STAT NEGATIVE (NEGATIVE); TRICYCLIC ANTIDEPRESSANTS SCRE NEGATIVE (NEGATIVE)
[2020-05-13] MEDS ORDERED: KETOROLAC 30 MG/ML VIAL IVP ONE (02:30)
[2020-05-13 02:55] VITALS: BP 104/57
--- NOTE | 2020-05-13 05:26 | Diagnostic Imaging Report ---
INDICATION: Chest pain COMPARISON: 07/12/2018 FINDINGS: Frontal and lateral views of the chest demonstrate normal heart size and pulmonary vascularity. The lungs are clear. There are no signs of infiltrate, pleural effusions or pneumothoraces. The visualized osseous structures show no acute abnormalities. IMPRESSION: 1. No acute process. No signs of infiltrates, effusions or pneumothoraces. Dictated by: Dictated on workstation # [id number]
== END 2020-05-13 02:55 | disposition home or self-care (01) ==
LOC: EDUNIT# 00:53 → ER 00:55
DX: R07.89 Other chest pain (principal); F41.9 Anxiety disorder, unspecified; Z82.49 Family history of ischemic heart disease and other diseases of the circulatory system; Z83.3 Family history of diabetes mellitus; Z87.891 Personal history of nicotine dependence; Z88.5 Allergy status to narcotic agent
CPT/HCPCS: 36415; 71046; 80053; 80306; 81000; 83690; 83735; 83880; 84484; 84703; 85025; 85610; 85730; 93005; 93041